=== PATIENT | male | born 1995 | race Two or more races ===

== ENCOUNTER 2019-09-01 23:33 | Emergency (ER) | payer OTHER ==
[2019-09-01 23:53] VITALS: BMI 21.7
--- NOTE | 2019-09-02 00:43 | PDOC ---
Attending Attestation - Resident Resident Name: Brandy Snell - ED Attending Attestation I have performed the following: I have examined & evaluated the patient, The case was reviewed & discussed with the resident, I agree w/resident's findings & plan, Exceptions are as noted - HPI HPI: 09/02/19 00:41 24M with toothache progressive over several weeks, here today because pain and become intolerable. Tried motrin today with good effect. No f/c, no drainage, swelling. Tolerating po, no drooling, sob - Physicial Exam PE: 09/02/19 02:01 Agree with documented exam - Medical Decision Making 09/02/19 02:01 Toothache, worsening pain analgesia dental referral information dc Discharge - Discharge Information Problems reviewed: Yes Clinical Impression/Diagnosis: Tooth ache Condition: Stable - Follow up/Referral Referrals: [facility] [place] [facility] at [place] [Provider Group] Irwin Oconnor [Staff Physician] - - Patient Discharge Instructions Patient Printed Discharge Instructions: DI for Dental Pain Additional Instructions: You came into the ER for tooth pain. We gave you Motrin for the pain. Please follow up with a dentist. We have provided a referral to one. Come back to the ER immediately with any new or worsening concerns, such as fever, inability to tolerate liquids, or have any difficulty with breathing or swallowing. Thank you for coming to the [facility] We hope you feel better soon! - Post Discharge Activity Work/Back to School Note: Back to Work
--- NOTE | 2019-09-02 00:48 | PDOC ---
History of Present Illness - General Chief Complaint: Toothache Stated Complaint: TOOTH ACHE Time Seen by Provider: 09/02/19 00:09 - History of Present Illness Initial Comments: Pt is a 24yo M with no significant PMH who presents for tooth pain. Pain began 2-3 months ago with worsening 2 weeks ago after eating hard bread. Pt states that pain only occurs with eating, and worse with cold, but is able to tolerate PO intake. States that pain is 9/10 at worst, currently 7/10, radiating up to head when eating. Other than eating, denies any other aggravating factors. Pain improves with ibuprofen. Has not seen a dentist in 8 years. Denies f/c, ear pain, visual changes, neck pain. PCP: none PMH: none PSHx: none Meds: none All: NKDA Social: denies tobacco, EtOH, reports marijuana use 09/02/19 01:49 Past History - Medical History Allergies/Adverse Reactions: Allergies Allergy/AdvReac Type Severity Reaction Status Date / Time lidocaine AdvReac Intermediate Verified 09/01/19 23:45 vancomycin AdvReac Intermediate Verified 09/01/19 23:45 Home Medications: Ambulatory Orders Ibuprofen [Motrin -] 600 mg PO TID #28 tablet 05/05/16 Cardiac Disorders: Yes (MURMUR) - Psycho-Social/Smoking History Smoking History: Never smoked Have you smoked in the past 12 months: No Number of Cigarettes Smoked Daily: 3 Information on smoking cessation initiated: No - Substance Abuse Hx (Audit-C & DAST Scrn) How often the patient has a drink containing alcohol: Never Score: In Men: 4 or > Positive; In Women: 3 or > Positive: 0 Screen Result (Pos requires Nsg. Audit-10AR): Negative In the last yr the pt used illegal drug/Rx for NonMed reason: Yes Score: Yes response is considered Positive: 1 Screen Result (Positive result requires Nsg. DAST-10): Positive Review of Systems - Review of Systems Comments:: Constitutional: Denies fevers, chills HEENT: denies visual changes, ear pain, change in hearing, runny nose, nasal congestion, bruxism Neck: denies neck stiffness, pain Respiratory: Denies SOB, cough, wheezing Cardiac: Denies chest pain, palpitations, edema GI: Denies abdominal pain, n/v, constipation, diarrhea Neurological: Reports headache Heme: denies easy bruising, easy bleeding *Physical Exam - Vital Signs Last Vital Signs Temp Pulse Resp BP Pulse Ox 97.8 F 60 18 116/50 L 99 09/01/19 23:45 09/01/19 23:45 09/01/19 23:45 09/01/19 23:45 09/01/19 23:45 - Physical Exam General: in no acute distress, well developed, well nourished Head: normocephalic, atraumatic ENT: moist mucous membranes, no facial or gingival swelling, pain to touch on tooth #2 at buccal surface at gumline Neck: no LAD Lung: equal breath sounds b/l, CTA b/l, no crackles, wheezes Heart: RRR, normal S1, S2, no murmurs, rubs, gallops Medical Decision Making - Medical Decision Making Mr. Augustine is a 24yo M with no significant PMH who presents with tooth pain. Vital Signs Temp Pulse Resp BP Pulse Ox 97.3 F L 62 20 109/60 100 09/02/19 01:33 09/02/19 01:33 09/02/19 01:33 09/02/19 01:33 09/02/19 01:33 DDx: Dental caries, tooth fracture Plan: pain control Patient well appearing throughout entire ED stay, given Motrin with improvement in pain. Referral to dentist given as patient has not seen one in 7 years. Disposition Discharge to home. Discharge - Discharge Information Problems reviewed: Yes Clinical Impression/Diagnosis: Tooth ache Condition: Stable - Admission No - Follow up/Referral Referrals: [facility] [place] Internal [facility] at [place] [Provider Group] Irwin Oconnor [Staff Physician] - - Patient Discharge Instructions Patient Printed Discharge Instructions: DI for Dental Pain Additional Instructions: You came into the ER for tooth pain. We gave you Motrin for the pain. Please follow up with a dentist. We have provided a referral to one. Come back to the ER immediately with any new or worsening concerns, such as fever, inability to tolerate liquids, or have any difficulty with breathing or swallowing. Thank you for coming to the [facility] ER We hope you feel better soon! - Post Discharge Activity Work/Back to School Note: Back to Work
[2019-09-02] MEDS ORDERED: IBUPROFEN 600 MG TABLET (FP) PO ONE ×2 (00:52→01:00)
[2019-09-02 01:35] VITALS: BP 109/60; PULSE 62; TEMP 97.3
== END 2019-09-02 01:35 | disposition home or self-care (01) ==
LOC: JER 23:33
DX: K08.89 Other specified disorders of teeth and supporting structures (principal)
CPT/HCPCS: 99283-25

== ENCOUNTER 2022-12-27 19:24 | Emergency (ER) | payer OTHER ==
[2022-12-27 19:31] VITALS: BP 128/55; PULSE 70; RESP 18; TEMP 98.4; BMI 23.0
[2022-12-27] MEDS ORDERED: IBUPROFEN 600 MG TABLET (FP) PO ONE ×2 (19:44→19:46)
[2022-12-27] MEDS ORDERED: AMOX TR/POT CLAV 875MG/125MG TABLETS (FP) PO ONE (19:44)
[2022-12-27] MEDS ORDERED: AMOX TR/POT CLAV 875MG/125MG TABLETS (FP) ONE (19:46)
== END 2022-12-27 19:57 | disposition home or self-care (01) ==
LOC: JERFT 19:24
DX: K08.89 Other specified disorders of teeth and supporting structures (principal); R63.4 Abnormal weight loss
CPT/HCPCS: 99283-25